=== PATIENT | female | born 1985 | race Caucasian/White ===

== ENCOUNTER 2016-11-13 21:33 | Inpatient (IN) | payer MEDICAID ==
[2016-11-13] MEDS ORDERED: Sodium Chloride 0.9% 10 ML Syringe FLUSH PRN (23:06)
--- NOTE | 2016-11-13 23:10 | PCM.LDHP ---
L&D History of Present Illness - General Date of Service: 11/13/16 Admit Problem/Dx: Admission Diagnosis/Problem Admission Diagnosis/Problem - History of Present Illness Introduction:: 30 year old at 38w1d presents with painful uterine contraction. Cervical change from 3-4.5 Questionable loss of fluid. - Related Data Allergies/Adverse Reactions: Allergies Allergy/AdvReac Type Severity Reaction Status Date / Time No Known Allergies Allergy Verified 07/05/14 22:24 Home Medications: Home Meds Pnv with Ca,No.71/Iron/Fa [ Vitamin Tablet] 1 tab PO DAILY 01/07/14 [ History] Social & Family History - Tobacco Use Smoking Status *Q: Former Smoker (quit in 2008. smoked 5 years less than 1/2 ppd ) Years of Tobacco use: 5 Used Tobacco, but Quit: Yes Month Tobacco Last Used: 2008 Second Hand Smoke Exposure: Yes - Alcohol Use Days Per Week of Alcohol Use: 0 - Recreational Drug Use Recreational Drug Use: No H&P Review of Systems - Review of Systems: Review Of Systems: See Below General: Reports: no symptoms HEENT: Reports: no symptoms Pulmonary: Reports: No Symptoms Cardiovascular: Reports: no symptoms Gastrointestinal: Reports: No symptoms Genitourinary: Reports: no symptoms Musculoskeletal: Reports: no symptoms Skin: Reports: no symptoms Psychiatric: Reports: no symptoms Neurological: Reports: No Symptoms Hematologic/Lymphatic: Reports: no symptoms Immunologic: Reports: no symptoms L&D Exam - Exam Exam: See Below - OB Specific Contraction Intensity: Moderate Heart Rate (FHR) Variability: Moderate (6-25 bmp) Presentation: Vertex - Mchugh Score Mchugh Score Cervix Position: Midposition Mchugh Score Consistency: Soft Mchugh Score Effacement: 51-70% Mchugh Score Dilation: > 5 cm Mchugh Score 's Station: -2 Mchugh Score Total: 9 - Exam General: alert, oriented Neck: supple Lungs: Clear to auscultation Cardiovascular: regular rate, regular rhythm Abdomen: normal bowel sounds, soft Back Exam: normal inspection, full range of motion Extremities: normal inspection Skin: warm, dry, intact Psychiatric: alert, normal affect, normal mood - Problem List (1) Normal labor SNOMED Code(s): 22907815 ICD Code: O80 - ENCOUNTER FOR FULL-TERM UNCOMPLICATED DELIVERY; Z37.9 - OUTCOME OF DELIVERY, UNSPECIFIED Status: Acute Current Visit: Yes Problem List Initiated/Reviewed/Updated: Yes Orders Last 24hrs: Active Orders 24 hr Category Date Time Status Activity as Tolerated [RC] PFP Care 11/13/16 23:06 Ordered Communication Order [RC] ASDIRECTED Care 11/13/16 23:06 Ordered Heart Tones [RC] ASDIRECTED Care 11/13/16 23:06 Ordered Notify Provider [RC] PFP Care 11/13/16 23:06 Ordered Notify Provider [RC] PRN Care 11/13/16 23:06 Ordered Peripheral IV Care [RC] . DIRECTED Care 11/13/16 23:06 Ordered Vital Signs [RC] PER UNIT ROUTINE Care 11/13/16 23:06 Ordered Clear Liquid Diet [DIET] Diet 11/13/16 Dinner Ordered Lactated Ringers [Ringers, Lactated] 1,000 ml Med 11/13/16 23:15 Ordered IV ASDIRECTED Sodium Chloride 0.9% [Saline Flush] Med 11/13/16 23:06 Ordered 10 ml FLUSH ASDIRECTED PRN Electronic Heart Tones Ext w TOCO [WOMSER] Oth 11/13/16 23:06 Ordered Routine Electronic Heart Tones Internal [WOMSER] Per Unit Oth 11/13/16 23:06 Ordered Routine Peripheral IV Insertion Adult [OM.PC] Routine Oth 11/13/16 23:06 Ordered Resuscitation Status Routine Resus Stat 11/13/16 23:06 Ordered Assessment/Plan Comment:: Term labor GBS neg AROM Anticipate .
[2016-11-14] MEDS: Lactated Ringers 1,000 ML IV SCH ×3 (00:30→03:02)
[2016-11-14] MEDS ORDERED: diphenhydrAMINE 50 MG/ML SDV IVPUSH PRN (01:26)
[2016-11-14] MEDS ORDERED: fentaNYL 100 MCG/2 ML SDV EPIDUR PRN (01:26)
[2016-11-14] MEDS ORDERED: ePHEDrine 50 MG/ML SDV IVPUSH PRN (01:26)
[2016-11-14] MEDS ORDERED: Bupivacaine/fentaNYL/NS 100 ML Bag EPIDUR SCH (01:30)
--- NOTE | 2016-11-14 02:14 | PCM.PREANE ---
Preanesthetic Assessment - Anesthesia/Transfusion/Family Hx Anesthesia History: Prior Anesthesia Without Reaction Family History of Anesthesia Reaction: No Transfusion History: No Prior Transfusion(s) - Review of Systems General: No Symptoms Pulmonary: No Symptoms Cardiovascular: No Symptoms Gastrointestinal: No symptoms Neurological: No Symptoms Other: Reports: None - Physical Assessment Pulse: 130 O2 Sat by Pulse Oximetry: 98 Respiratory Rate: 18 Blood Pressure: 145/69 Temperature: 37.1 C Height: 1.65 m Weight: 73.482 kg ASA Class: 2 Mental Status: Alert & Oriented x3 Airway Class: Mallampati = 1 Dentition: Reports: Normal Dentition Thyro-Mental Finger Breadths: 3 Mouth Opening Finger Breadths: 3 ROM/Head Extension: Full Lungs: Clear to auscultation, Normal respiratory effort Cardiovascular: Regular Rate, Regular Rhythm - Lab Values: Laboratory Last Values WBC 17.67 K/mm3 (3.98-10.04) H 11/14/16 01:25 RBC 3.39 M/mm3 (3.98-5.22) L 11/14/16 01:25 Hgb 9.2 gm/L (11.2-15.7) L 11/14/16 01:25 Hct 28.3 % (34.1-44.9) L 11/14/16 01:25 MCV 83.5 fl (79.4-94.8) 11/14/16 01:25 MCH 27.1 pg (25.6-32.2) 11/14/16 01:25 MCHC 32.5 g/dl (32.2-35.5) 11/14/16 01:25 RDW Std Deviation 43.8 fL (36.4-46.3) 11/14/16 01:25 Plt Count 276 K/mm3 (182-369) 11/14/16 01:25 MPV 9.6 fl (9.4-12.3) 11/14/16 01:25 Neut % (Auto) 80.7 % (34.0-71.1) H 11/14/16 01:25 Lymph % (Auto) 11.7 % (19.3-51.7) L 11/14/16 01:25 Wood % (Auto) 6.6 % (4.7-12.5) 11/14/16 01:25 Eos % (Auto) 0.2 (0.7-5.8) L 11/14/16 01:25 Baso % (Auto) 0.2 % (0.1-1.2) 11/14/16 01:25 Neut # (Auto) 14.27 K/mm3 (1.56-6.13) H 11/14/16 01:25 Lymph # (Auto) 2.07 K/mm3 (1.18-3.74) 11/14/16 01:25 Wood # (Auto) 1.16 K/mm3 (0.24-0.36) H 11/14/16 01:25 Eos # (Auto) 0.03 K/mm3 (0.04-0.36) L 11/14/16 01:25 Baso # (Auto) 0.04 K/mm3 (0.01-0.08) 11/14/16 01:25 - Allergies Allergies/Adverse Reactions: Allergies Allergy/AdvReac Type Severity Reaction Status Date / Time No Known Allergies Allergy Verified 07/05/14 22:24 - Anesthesia Plan Pre-Op Medication Ordered: None - Acknowledgements Anesthesia Type Planned: Epidural Pt an Appropriate Candidate for the Planned Anesthesia: Yes Alternatives and Risks of Anesthesia Discussed w Pt/Guardian: Yes Pt/Guardian Understands and Agrees with Anesthesia Plan: Yes PreAnesthesia Questionnaire Gastrointestinal History: Reports: GERD - SUBSTANCE USE Smoking Status *Q: Former Smoker (quit in 2008. smoked 5 years less than 1/2 ppd ) Second Hand Smoke Exposure: Yes Days Per Week of Alcohol Use: 0 Recreational Drug Use History: No - HOME MEDS Home Medications: Home Meds Pnv with Ca,No.71/Iron/Fa [ Vitamin Tablet] 1 tab PO DAILY 01/07/14 [ History] - CURRENT (IN HOUSE) MEDS Current Meds: Current Medications Diphenhydramine HCl (Benadryl) 25 mg IVPUSH Q6H PRN PRN Reason: Itching Ephedrine Sulfate (Ephedrine Sulfate) 5 mg IVPUSH ASDIRECTED PRN PRN Reason: HYPOTENTSION Fentanyl (Sublimaze) 100 mcg EPIDUR Q3H PRN PRN Reason: PAIN Last Admin: 11/14/16 01:57 Dose: 100 mcg Fentanyl/Bupivacaine HCl (Fentanyl/Bupivacaine/Ns 2 Mcg-0.125% 100 Ml) 100 ml EPIDUR ASDIRECTED DANTE Last Admin: 11/14/16 01:58 Dose: 100 ml Lactated Ringer's (Ringers, Lactated) 1,000 mls @ 100 mls/hr IV ASDIRECTED DANTE Last Admin: 11/14/16 01:40 Dose: 999 mls/hr Sodium Chloride (Saline Flush) 10 ml FLUSH ASDIRECTED PRN PRN Reason: Keep Vein Open Preanesthetic Assessment - ANESTHESIA/TRANSFUSION/FAMILY HX Anesthesia/Transfusion History: No Prior Transfusion(s), Prior Anesthesia Family History of Anesthesia Reaction: No - PHYSICAL ASSESSMENT Height: 1.65 m Weight: 73.482 kg - LAB Values: Laboratory Last Values WBC 17.67 K/mm3 (3.98-10.04) H 11/14/16 01:25 RBC 3.39 M/mm3 (3.98-5.22) L 11/14/16 01:25 Hgb 9.2 gm/L (11.2-15.7) L 11/14/16 01:25 Hct 28.3 % (34.1-44.9) L 11/14/16 01:25 MCV 83.5 fl (79.4-94.8) 11/14/16 01:25 MCH 27.1 pg (25.6-32.2) 11/14/16 01:25 MCHC 32.5 g/dl (32.2-35.5) 11/14/16 01:25 RDW Std Deviation 43.8 fL (36.4-46.3) 11/14/16 01:25 Plt Count 276 K/mm3 (182-369) 11/14/16 01:25 MPV 9.6 fl (9.4-12.3) 11/14/16 01:25 Neut % (Auto) 80.7 % (34.0-71.1) H 11/14/16 01:25 Lymph % (Auto) 11.7 % (19.3-51.7) L 11/14/16 01:25 Wood % (Auto) 6.6 % (4.7-12.5) 11/14/16 01:25 Eos % (Auto) 0.2 (0.7-5.8) L 11/14/16 01:25 Baso % (Auto) 0.2 % (0.1-1.2) 11/14/16 01:25 Neut # (Auto) 14.27 K/mm3 (1.56-6.13) H 11/14/16 01:25 Lymph # (Auto) 2.07 K/mm3 (1.18-3.74) 11/14/16 01:25 Wood # (Auto) 1.16 K/mm3 (0.24-0.36) H 11/14/16 01:25 Eos # (Auto) 0.03 K/mm3 (0.04-0.36) L 11/14/16 01:25 Baso # (Auto) 0.04 K/mm3 (0.01-0.08) 11/14/16 01:25 - ALLERGIES Allergies/Adverse Reactions: Allergies Allergy/AdvReac Type Severity Reaction Status Date / Time No Known Allergies Allergy Verified 07/05/14 22:24
[2016-11-14] MEDS ORDERED: Oxytocin/Lactated Ringers 10 UNIT/1,000 ML BAG IV SCH (07:30)
[2016-11-14] MEDS ORDERED: Clindamycin Phosphate 600 MG in Sodium Chloride 0.9% 100 ML IV ONE (08:31)
[2016-11-14] MEDS ORDERED: Bupivacaine 0.25% 10 ML SDV ONE (09:00)
[2016-11-14] MEDS ORDERED: Acetaminophen 325 MG Tab PO SCH (09:00)
[2016-11-14] MEDS ORDERED: Witch Hazel Medicated Pads 100/Jar TOP PRN (10:20)
[2016-11-14] MEDS ORDERED: Lanolin 100% Cream 7 GM Tube TOP PRN (10:20)
[2016-11-14] MEDS ORDERED: Benzocaine/Menthol 20%-0.5% Spray 56 GM Canister TOP PRN (10:20)
[2016-11-14] MEDS ORDERED: Acetaminophen 325 MG Tab PO PRN (10:20)
[2016-11-14] MEDS ORDERED: Docusate Sodium 100 MG Cap PO PRN (10:20)
[2016-11-14] MEDS: Ibuprofen 600 MG Tab PO PRN (15:45)
[2016-11-15] MEDS: Ibuprofen 600 MG Tab PO PRN (05:59)
--- NOTE | 2016-11-15 08:38 | PCM.PNPP ---
- General Info Date of Service: 11/15/16 Admission Dx/Problem (Free Text): Doing well. Would like to be discharged today but as febrile immediately prior to delivery would like to observe mom and baby until tomorrow morning. No other issues. Functional Status: Reports: pain controlled - Review of Systems General: Reports: No Symptoms HEENT: Reports: no symptoms Pulmonary: Reports: no symptoms Cardiovascular: Reports: No Symptoms Gastrointestinal: Reports: No symptoms Genitourinary: Reports: no symptoms Musculoskeletal: Reports: no symptoms Skin: Reports: no symptoms Neurological: Reports: No Symptoms Psychiatric: Reports: no symptoms - General Info Date of Service: 11/15/16 - Patient Data Vital Signs - most recent: Last Vital Signs Temp 36.7 C 11/15/16 06:46 Pulse 83 11/15/16 06:46 Resp 16 11/15/16 06:46 BP 117/67 11/15/16 06:46 Pulse Ox 98 11/15/16 06:46 Weight - most recent: 73.482 kg Med Orders - Current: Current Medications Acetaminophen (Tylenol) 650 mg PO Q6H PRN PRN Reason: mild pain or fever Last Admin: 11/15/16 05:58 Dose: 650 mg Benzocaine/Menthol (Dermoplast Pain Relief [place]) 0 gm TOP ASDIRECTED PRN PRN Reason: Perineal Comfort Measure Docusate Sodium (Colace) 100 mg PO BID PRN PRN Reason: Constipation Ibuprofen (Motrin) 600 mg PO Q6H PRN PRN Reason: Mild pain or fever Last Admin: 11/15/16 05:59 Dose: 600 mg Witch Mary (Tucks) 1 pad TOP ASDIRECTED PRN PRN Reason: Hemorrhoid pain Discontinued Medications Acetaminophen (Tylenol) 325 mg PO DAILY [facility] Last Admin: 11/15/16 02:53 Dose: Not Given Diphenhydramine HCl (Benadryl) 25 mg IVPUSH Q6H PRN PRN Reason: Itching Emollient Ointment (Lansinoh Hpa) 0 gm TOP ASDIRECTED PRN PRN Reason: Sore Nipples Ephedrine Sulfate (Ephedrine Sulfate) 5 mg IVPUSH ASDIRECTED PRN PRN Reason: HYPOTENTSION Fentanyl (Sublimaze) 100 mcg EPIDUR Q3H PRN PRN Reason: PAIN Last Admin: 11/14/16 01:57 Dose: 100 mcg Fentanyl/Bupivacaine HCl (Fentanyl/Bupivacaine/Ns 2 Mcg-0.125% 100 Ml) 100 ml EPIDUR ASDIRECTED [facility] Last Admin: 11/14/16 01:58 Dose: 100 ml Lactated Ringer's (Ringers, Lactated) 1,000 mls @ 100 mls/hr IV ASDIRECTED [facility] Last Infusion: 11/14/16 05:30 Dose: Infused Oxytocin/Lactated Ringer's (Pitocin In Lr 10 Units/1,000 Ml) 10 unit in 1,000 mls @ 3,000 mls/hr IV TITRATE [facility] PRN Reason: 500 MUNITS/MIN Last Admin: 11/14/16 10:18 Dose: 500 munits/min, 500 mls/hr Clindamycin Phosphate 600 mg/ (Sodium Chloride) 104 mls @ 100 mls/hr IV ONETIME ONE Stop: 11/14/16 09:33 Last Admin: 11/14/16 08:43 Dose: 100 mls/hr Gentamicin Sulfate 100 mg/ (Sodium Chloride) 102.5 mls @ 200 mls/hr IV DAILY [facility] Last Admin: 11/14/16 09:21 Dose: 200 mls/hr Sodium Chloride (Saline Flush) 10 ml FLUSH ASDIRECTED PRN PRN Reason: Keep Vein Open - Infant Interaction Disposition, : in Room with Family Support Person: - Recovery Exam Fundal Tone: Firm Fundal Level: 1 Fingerbreadths Below Umbilicus Fundal Placement: Midline Lochia Amount: Small Lochia Color: Rubra/Red Perineum Description: Intact, Minimal Bruising/Swelling Episiotomy/Laceration: None Bladder Status: Voiding Urinary Elimination: Voided - Exam General: alert, oriented HEENT: Pupils equal Neck: supple Lungs: Clear to auscultation, Normal respiratory effort Cardiovascular: Regular Rate, Regular Rhythm Abdomen: bowel sounds present, soft, no tenderness, no distension Extremities: no edema Skin: warm, dry, intact Neurological: no new focal deficit Psy/Mental Status: alert, normal affect, normal mood - Problem List & Annotations (1) Normal labor SNOMED Code(s): 65115520 Code(s): O80 - ENCOUNTER FOR FULL-TERM UNCOMPLICATED DELIVERY; Z37.9 - OUTCOME OF DELIVERY, UNSPECIFIED Status: Acute Current Visit: Yes - Problem List Review Problem List Initiated/Reviewed/Updated: Yes - My Orders Last 24 Hours: My Active Orders 11/14/16 10:20 Activity as Tolerated [RC] PER UNIT ROUTINE Vital Signs [RC] 04,12,20 Acetaminophen [Tylenol] 650 mg PO Q6H PRN Benzocaine/Menthol [Dermoplast Pain Relief [place]] See Dose Instructions TOP ASDIRECTED PRN Docusate Sodium [Colace] 100 mg PO BID PRN Ibuprofen [Motrin] 600 mg PO Q6H PRN Witch Mary [Tucks] 1 pad TOP ASDIRECTED PRN Assess Lochia [WOMSER] Per Unit Routine Assess Uterine Involution [WOMSER] Per Unit Routine Breast Pump [WOMSER] Per Unit Routine Heat Therapy [OM.PC] PRN Medication Administration Instruction [OM.PC] Routine Perineal Care [OM.PC] Per Unit Routine Sitz Bath [OM.PC] Per Unit Routine 11/15/16 10:20 Heat Therapy [OM.PC] PRN - Assessment Assessment:: TErm delivery with chorioamnionitis prior to delivery. Afebrile Doing great. - Plan Plan:: Probable discharge tomorrow. No issues
--- NOTE | 2016-11-16 09:25 | PCM.DCSUM1 ---
Discharge Summary - Hospital Course Brief History: Admitted for labor - Discharge Data Discharge Date: 11/16/16 Discharge Disposition: Home, Self-Care 01 Condition: Good - Discharge Diagnosis/Problem(s) (1) Normal labor SNOMED Code(s): 54730564 ICD Code: O80 - ENCOUNTER FOR FULL-TERM UNCOMPLICATED DELIVERY; Z37.9 - OUTCOME OF DELIVERY, UNSPECIFIED Status: Acute Current Visit: Yes - Patient Summary/Data Hospital Course: Admitted in active labor. No issues. Unremarkable . - Patient Instructions Diet: Usual Diet as Tolerated Activity: As Tolerated Driving: May Drive Today Showering/Bathing: May Shower Notify Provider of: Fever, Increased Pain, Swelling and Redness, Drainage, Nausea and/or Vomiting - Discharge Plan Home Medications: Home Meds Pnv with Ca,No.71/Iron/Fa [ Vitamin Tablet] 1 tab PO DAILY 01/07/14 [ History] - General Info Date of Service: 11/16/16 Functional Status: Reports: pain controlled - Review of Systems General: Reports: No Symptoms HEENT: Reports: no symptoms Pulmonary: Reports: no symptoms Cardiovascular: Reports: No Symptoms Gastrointestinal: Reports: No symptoms Genitourinary: Reports: no symptoms Musculoskeletal: Reports: no symptoms Skin: Reports: no symptoms Neurological: Reports: No Symptoms Psychiatric: Reports: no symptoms - Patient Data Vitals - Most Recent: Last Vital Signs Temp 36.9 C 11/16/16 06:15 Pulse 89 11/16/16 06:15 Resp 18 11/16/16 06:15 BP 109/65 11/16/16 06:15 Pulse Ox 97 11/16/16 06:15 Weight - Most Recent: 73.482 kg Med Orders - Current: Current Medications Acetaminophen (Tylenol) 650 mg PO Q6H PRN PRN Reason: mild pain or fever Last Admin: 11/15/16 05:58 Dose: 650 mg Benzocaine/Menthol (Dermoplast Pain Relief [place]) 0 gm TOP ASDIRECTED PRN PRN Reason: Perineal Comfort Measure Docusate Sodium (Colace) 100 mg PO BID PRN PRN Reason: Constipation Ibuprofen (Motrin) 600 mg PO Q6H PRN PRN Reason: Mild pain or fever Last Admin: 11/15/16 05:59 Dose: 600 mg Witch Mary (Tucks) 1 pad TOP ASDIRECTED PRN PRN Reason: Hemorrhoid pain Discontinued Medications Acetaminophen (Tylenol) 325 mg PO DAILY [facility] Last Admin: 11/15/16 02:53 Dose: Not Given Bupivacaine HCl (Sensorcaine-Mpf 0.25%) 10 ml .ROUTE .STK-MED ONE Stop: 11/14/16 09:01 Diphenhydramine HCl (Benadryl) 25 mg IVPUSH Q6H PRN PRN Reason: Itching Emollient Ointment (Lansinoh Hpa) 0 gm TOP ASDIRECTED PRN PRN Reason: Sore Nipples Ephedrine Sulfate (Ephedrine Sulfate) 5 mg IVPUSH ASDIRECTED PRN PRN Reason: HYPOTENTSION Fentanyl (Sublimaze) 100 mcg EPIDUR Q3H PRN PRN Reason: PAIN Last Admin: 11/14/16 01:57 Dose: 100 mcg Fentanyl/Bupivacaine HCl (Fentanyl/Bupivacaine/Ns 2 Mcg-0.125% 100 Ml) 100 ml EPIDUR ASDIRECTED [facility] Last Admin: 11/14/16 01:58 Dose: 100 ml Lactated Ringer's (Ringers, Lactated) 1,000 mls @ 100 mls/hr IV ASDIRECTED [facility] Last Infusion: 11/14/16 05:30 Dose: Infused Oxytocin/Lactated Ringer's (Pitocin In Lr 10 Units/1,000 Ml) 10 unit in 1,000 mls @ 3,000 mls/hr IV TITRATE [facility] PRN Reason: 500 MUNITS/MIN Last Admin: 11/14/16 10:18 Dose: 500 munits/min, 500 mls/hr Clindamycin Phosphate 600 mg/ (Sodium Chloride) 104 mls @ 100 mls/hr IV ONETIME ONE Stop: 11/14/16 09:33 Last Admin: 11/14/16 08:43 Dose: 100 mls/hr Gentamicin Sulfate 100 mg/ (Sodium Chloride) 102.5 mls @ 200 mls/hr IV DAILY [facility] Last Admin: 11/14/16 09:21 Dose: 200 mls/hr Sodium Chloride (Saline Flush) 10 ml FLUSH ASDIRECTED PRN PRN Reason: Keep Vein Open - Exam General: Reports: alert, oriented HEENT: Reports: Pupils equal, Pupils reactive, EOMI, Mucous membr. moist/pink Neck: Reports: supple Lungs: Reports: Clear to auscultation, Normal respiratory effort Cardiovascular: Reports: Regular Rate, Regular Rhythm Abdomen: Reports: bowel sounds present, soft, no tenderness, no distension (Female) Exam: Normal external exam, Normal speculum exam, Normal bimanual exam Rectal (Female) Exam: Normal Exam, Normal rectal tone Back Exam: Reports: normal inspection, full range of motion Extremities: Reports: no edema, normal pulses Skin: Reports: warm, dry, intact Wound/Incisions: Reports: healing well Neurological: Reports: no new focal deficit Psy/Mental Status: Reports: alert, normal affect, normal mood *Q Meaningful Use (DIS) - VTE *Q VTE Criteria *Q: - Stroke *Q Stroke Criteria *Q: - AMI *Q AMI Criteria *Q:
[2016-11-16 09:52] VITALS: BP 106/66
== END 2016-11-16 09:30 | disposition home or self-care (01) | DRG 774 ==
LOC: JD.OBCHECK 21:33 → JD.OB 21:33 → JD.OBCHECK 11-14 00:54 → JD.OB 11-14 00:55 → OBSVTOIN 11-14 09:54 → JD.OB 11-14 09:54
PROVIDERS: ADMIT Obstetrics & Gynecology; ATTEND Obstetrics & Gynecology
PROC: 10E0XZZ Delivery of Products of Conception, External Approach (ICD-10-PCS; principal; 2016-11-14)
PROC: 10907ZC Drainage of Amniotic Fluid, Therapeutic from Products of Conception, Via Natural or Artificial Opening (ICD-10-PCS; 2016-11-14)
PROC: 00HU33Z Insertion of Infusion Device into Spinal Canal, Percutaneous Approach (ICD-10-PCS; 2016-11-14)
PROC: 3E0R3CZ (ICD-10-PCS; 2016-11-14)
DX: O80 Encounter for full-term uncomplicated delivery (principal); O75.2 Pyrexia during labor, not elsewhere classified; Z3A.38 38 weeks gestation of pregnancy; Z37.0 Single live birth; Z87.891 Personal history of nicotine dependence
CPT/HCPCS: 01967; 36415; 85025; A9270-GY; J1580; J2590; J3010; J7030; J7120

== ENCOUNTER 2022-06-08 04:30 | Inpatient (IN) | payer MEDICAID ==
[~2022-06-08 04:30] MED LIST: Bupivacaine/fentaNYL/NS 100 ML Bag ONE; Calcium Carbonate 500 MG Tab.Chew ONE; Lactated Ringers 1,000 ML ONE; Oxytocin/Lactated Ringers 10 UNIT/1,000 ML BAG IV ONE; fentaNYL 100 MCG/2 ML SDV ONE
[2022-06-08] MEDS ORDERED: Ibuprofen 600 MG Tab ONE (07:43)
[2022-06-08] MEDS ORDERED: Bupivacaine 0.25% 10 ML SDV ONE (08:00)
[2022-06-08] MEDS ORDERED: Phenylephrine HCl In 0.9% NaCl 1 MG/10 ML Vial ONE (08:00)
[2022-06-08] MEDS ORDERED: Nalbuphine HCl 10 MG/ 1ML Amp IV PRN (16:25)
[2022-06-08] MEDS ORDERED: Lidocaine 1% 50 ML MDV INJECT PRN (16:26)
[2022-06-08] MEDS ORDERED: Lactated Ringers 1,000 ML IV SCH (16:30)
[2022-06-08] MEDS ORDERED: Oxytocin/Lactated Ringers 10 UNIT/1,000 ML BAG IV SCH (16:30)
[2022-06-09 09:55] VITALS: BP 123/82; PULSE 93
== END 2022-06-09 12:08 | disposition home or self-care (01) | DRG 998 ==
LOC: JD.OB 04:30 → MERGE 04:30
PROVIDERS: ADMIT Obstetrics & Gynecology; ATTEND Obstetrics & Gynecology
DX: O80 Encounter for full-term uncomplicated delivery (principal); Z37.0 Single live birth
CPT/HCPCS: 51702; 59025; 59409; J3490